=== PATIENT | female | born 1985 | race Hispanic/Latino ===

== ENCOUNTER 2020-01-09 12:57 | Emergency (ER) | payer OTHER ==
--- OUTSIDE RECORDS SUMMARY | 2020-01-09 13:00 | XMS REPORT ---
:1985 Author Organization eClinicalWorks Care Team Providers Name Role Phone Gil Rhonda Provider Role Unavailable Allergies, Adverse Reactions, Alerts Substance Reaction Event Type N.K.D.A. Info Not Available Non Drug Allergy Problems Problem Type Condition Code Onset Dates Condition Status Problem Bunion of great toe of left foot M21.612 Active Problem Pharyngitis, unspecified etiology J02.9 Active Problem Otalgia of left ear H92.02 Active Assessment Genital lesion, female N94.9 Active Problem Menstrual irregularity N92.6 Active Problem Anxiety F41.9 Active Problem Genital lesion, female N94.9 Active Problem Right ear impacted cerumen H61.21 Active Problem Frequent headaches R51 Active Problem Depression screening Z13.31 Active Problem Fever blister B00.1 Active Medications Medication Code Code Instructions Start End Status Dosage System Date Date Effexor XR [facility] 51148838495 37.5 MG Orally Jul 05, Active 1 capsule Once a day 2018 with food Deconex IR [facility] 11175286143 10-385 MG Orally January Active 1 tablet as every 4 hrs 2018 needed Paroxetine HCl ND 80575029162 20 MG Orally June 29, Active 1 tablet in Once a day 2018 the morning Medrol ND 02272690637 4 MG Orally as January Active as directed directed 2018 Results No Known Results Summary Purpose eClinicalWorks Submission
--- OUTSIDE RECORDS SUMMARY | 2020-01-09 13:00 | XMS REPORT ---
:1985 Author Organization [employer] Care Team Providers Name Role Phone Fani Mcmullen Provider Role Unavailable Allergies No Known Allergies Problems Problem Type Condition Code Onset Dates Condition Status Problem Otalgia of left ear H92.02 Active Problem Bunion of great toe of left foot M21.612 Active Assessment Hematuria R31.9 Active Assessment Family planning counseling Z30.09 Active Assessment Depo-Provera contraceptive status Z30.42 Active Problem Anxiety F41.9 Active Problem Depression screening Z13.31 Active Problem Menstrual irregularity N92.6 Active Problem Frequent headaches R51 Active Problem Pharyngitis, unspecified etiology J02.9 Active Problem Fever blister B00.1 Active Problem Right ear impacted cerumen H61.21 Active Medications Medication Code Code Instructions Start End Status Dosage System Date Date Paroxetine HCl ND 97057728925 20 MG Orally June 29, Active 1 tablet in Once a day 2018 the morning Medrol ND 66296869113 4 MG Orally as January Active as directed directed 2018 Deconex IR ND 52262039849 10-385 MG Orally January Active 1 tablet as every 4 hrs 2018 needed Effexor XR ND 89187516518 37.5 MG Orally Jul 05, Active 1 capsule Once a day 2019 with food Results No Known Results Summary Purpose eClinicalWorks Submission
--- NOTE | 2020-01-09 15:21 | ER ---
Nurse's Notes [facility] Name: Andressa Faria Age: 34 yrs Sex: Female : 1985 Arrival Date: 01/09/2020 Time: 13:00 Bed 10 Private MD: Diagnosis: Acute bronchitis Presentation: 01/09 13:57 Presenting complaint: Patient states: Cough and Congestion x 3 days. Ear pain. Fever on ca1 Thursday. Transition of care: patient was not received from another setting of care. Onset of symptoms was January 09, 2020. Risk Assessment: Do you want to hurt yourself or someone else? Patient reports no desire to harm self or others. Initial Sepsis Screen: Does the patient meet any 2 criteria? No. Patient's initial sepsis screen is negative. Does the patient have a suspected source of infection? No. Patient's initial sepsis screen is negative. Care prior to arrival: None. 13:57 Method Of Arrival: Ambulatory ca1 13:57 Acuity: DONYA 4 ca1 Triage Assessment: 15:52 General: Appears in no apparent distress. Behavior is calm. 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 - Coronavirus screen:: The patient has NOT traveled to [place], [place], or [place] in the past 14 days. The patient has NOT had contact with known/suspected case of Coronavirus?. - Social history:: Patient uses Patient/guardian denies using alcohol, street drugs, The patient lives with spouse, Smoking status: Patient denies any tobacco usage or history of. - Family history:: not pertinent. - Ebola Screening: : Patient negative for fever greater than or equal to 101.5 degrees Fahrenheit, and additional compatible Ebola Virus Disease symptoms Patient denies exposure to infectious person Patient denies travel to an Ebola-affected area in the 21 days before illness onset No symptoms or risks identified at this time. Screenin:00 Abuse screen: Denies threats or abuse. Denies injuries from another. Nutritional iw screening: No deficits noted. Tuberculosis screening: No symptoms or risk factors identified. Fall Risk None identified. Assessment: 15:00 General: Appears in no apparent distress. Behavior is calm, cooperative. General: iw Reports fever for feeling ill for. Pain: Complains of pain in body aches. Neuro: Level of Consciousness is awake, alert, obeys commands, Oriented to person, place, time, situation, Moves all extremities. Full function. Respiratory: Airway is patent Respiratory effort is even, unlabored, Breath sounds are clear bilaterally. EENT: Throat is clear with gag reflex present. Derm: Skin is intact, is healthy with good turgor. Musculoskeletal: Range of motion: intact in all extremities. Vital Signs: 13:59 BP 119 / 79; Pulse 100; Resp 19 S; Temp 98.8(O); Pulse Ox 100% on R/A; Weight 61.23 kg ca1 (R); Height 5 ft. 4 in. (162.56 cm) (R); 13:59 Body Mass Index 23.17 (61.23 kg, 162.56 cm) ca1 ED Course: 13:00 Patient arrived in ED. rg4 13:58 Triage completed. ca1 13:59 Arm band placed on right wrist. ca1 14:08 Lina Mayo, RN is Primary Nurse. iw 14:22 Ana Tang MD is Attending Physician. ma2 15:00 Patient has correct armband on for positive identification. iw 15:52 No provider procedures requiring assistance completed. Patient did not have IV access iw during this emergency room visit. Administered Medications: 15:39 Drug: Zithromax 500 mg Route: PO; iw 15:39 Drug: TORadol 60 mg Route: IM; Site: right deltoid; iw Outcome: 15:20 Discharge ordered by . ma2 15:52 Discharged to home ambulatory. iw 15:52 Condition: good 15:52 Discharge instructions given to patient, Instructed on discharge instructions, follow up and referral plans. medication usage, Demonstrated understanding of instructions, follow-up care, medications, Prescriptions given X 3. 15:53 Patient left the ED. iw Signatures: Lina Mayo, RN AVA iw Kimi Ferguson rg4 Ana Tang MD MD fl2 Lola Olmos RN RN ca1
--- NOTE | 2020-01-09 15:22 | EDPHYS ---
Physician Documentation [facility] Name: Andressa Faria Age: 34 yrs Sex: Female : 1985 Arrival Date: 01/09/2020 Time: 13:00 Bed 10 Private MD: ED Physician Ana Tang HPI: 01/09 15:19 This 34 yrs old Female presents to ER via Ambulatory with complaints of Sore ma2 Throat, Cough, Body Aches, Ear Pain. 15:19 The patient presents with sore throat. The patient describes throat pain as burning. ma2 Onset: The symptoms/episode began/occurred gradually, 3 day(s) ago. Severity of symptoms: At their worst the symptoms were mild, in the emergency department the symptoms are unchanged. Associated signs and symptoms: Pertinent positives: cough, Pertinent negatives dysphagia, flu-like symptoms. The patient has not experienced similar symptoms in the past. 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 - Coronavirus screen:: The patient has NOT traveled to [place], [place], or [place] in the past 14 days. The patient has NOT had contact with known/suspected case of Coronavirus?. - Social history:: Patient uses Patient/guardian denies using alcohol, street drugs, The patient lives with spouse, Smoking status: Patient denies any tobacco usage or history of. - Family history:: not pertinent. - Ebola Screening: : Patient negative for fever greater than or equal to 101.5 degrees Fahrenheit, and additional compatible Ebola Virus Disease symptoms Patient denies exposure to infectious person Patient denies travel to an Ebola-affected area in the 21 days before illness onset No symptoms or risks identified at this time. ROS: 15:19 Constitutional: Negative for fever, chills, and weight loss. ma2 15:19 All other systems are negative. Exam: 15:19 Constitutional: This is a well developed, well nourished patient who is awake, alert, ma2 and in no acute distress. Head/Face: Normocephalic, atraumatic. Eyes: Pupils equal round and reactive to light, extra-ocular motions intact. Lids and lashes normal. Conjunctiva and sclera are non-icteric and not injected. Cornea within normal limits. Periorbital areas with no swelling, redness, or edema. ENT: Nares patent. No nasal discharge, no septal abnormalities noted. Tympanic membranes are normal and external auditory canals are clear. Oropharynx with no redness, swelling, or masses, exudates, or evidence of obstruction, uvula midline. Mucous membranes moist. Neck: Trachea midline, no thyromegaly or masses palpated, and no cervical lymphadenopathy. Supple, full range of motion without nuchal rigidity, or vertebral point tenderness. No Meningismus. Chest/axilla: Normal chest wall appearance and motion. Nontender with no deformity. No lesions are appreciated. Cardiovascular: Regular rate and rhythm with a normal S1 and S2. No gallops, murmurs, or rubs. Normal PMI, no JVD. No pulse deficits. Respiratory: Lungs have equal breath sounds bilaterally, clear to auscultation and percussion. No rales, rhonchi or wheezes noted. No increased work of breathing, no retractions or nasal flaring. Abdomen/GI: Soft, non-tender, with normal bowel sounds. No distension or tympany. No guarding or rebound. No evidence of tenderness throughout. Neuro: Awake and alert, GCS 15, oriented to person, place, time, and situation. Cranial nerves II-XII grossly intact. Motor strength 5/5 in all extremities. Sensory grossly intact. Cerebellar exam normal. Normal gait. Vital Signs: 13:59 BP 119 / 79; Pulse 100; Resp 19 S; Temp 98.8(O); Pulse Ox 100% on R/A; Weight 61.23 kg ca1 (R); Height 5 ft. 4 in. (162.56 cm) (R); 13:59 Body Mass Index 23.17 (61.23 kg, 162.56 cm) ca1 MDM: 14:22 Patient medically screened. ma2 15:19 Differential diagnosis: Allergic rhinitis, bronchitis, gastroesophageal reflux disease, ma2 group A strep tonsillitis. Data reviewed: vital signs, nurses notes. Counseling: I had a detailed discussion with the patient and/or guardian regarding: the historical points, exam findings, and any diagnostic results supporting the discharge/admit diagnosis, the presence of at least one elevated blood pressure reading (>120/80) during this emergency department visit, the need for outpatient follow up. Response to treatment: the patient's symptoms have markedly improved after treatment. 01/09 14:02 Order name: Flu ca1 01/09 14:02 Order name: Strep ca1 01/09 14:46 Order name: Influenza Screen (A ; Complete Time: 15:13 EDMS 01/09 14:46 Order name: Group A Streptococcus Rapid Sc; Complete Time: 15:13 EDMS Administered Medications: 15:39 Drug: Zithromax 500 mg Route: PO; iw 15:39 Drug: TORadol 60 mg Route: IM; Site: right deltoid; iw Disposition: 01/09/20 15:20 Discharged to Home. Impression: Acute bronchitis. - Condition is Stable. - Discharge Instructions: Acute Bronchitis, Adult. - Prescriptions for Tylenol- Codeine #3 300-30 mg Oral Tablet - take 2 tablet by ORAL route every 6 hours As needed; 30 tablet. Tessalon Perles 100 mg Oral Capsule - take 1 capsule by ORAL route every 8 hours As needed; 15 capsule. Zithromax Z- Edgar 250 mg Oral Tablet - take 1 tablet by ORAL route as directed for 5 days Day 1 - take two (2) tablets one time. Day 2, 3, 4 , 5 take one (1) tablet once daily.; 6 tablet. Medrol (Edgar) 4 mg Oral Tablets, Dose Pack - take 1 tablet by ORAL route as directed - follow package instructions; 1 packet. - Medication Reconciliation Form, Thank You Letter, Antibiotic Education, Prescription Opioid Use form. - Follow up: Private Physician; When: Today; Reason: Continuance of care. - Problem is new. - Symptoms are unchanged. Signatures: Dispatcher [employer] EDLina Wei RN RN iw Ana Tang MD MD ma2 Lola Olmos RN RN ca1 Corrections: (The following items were deleted from the chart) 15:20 15:20 01/09/2020 15:20 Discharged to Home. Impression: Acute bronchitis. Condition is ma2 Stable. Forms are Medication Reconciliation Form, Thank You Letter, Antibiotic Education, Prescription Opioid Use. Follow up: Private Physician; When: Today; Reason: Continuance of care. [email or web address] 15:53 15:20 01/09/2020 15:20 Discharged to Home. Impression: Acute bronchitis. Condition is iw Stable. Forms are Medication Reconciliation Form, Thank You Letter, Antibiotic Education, Prescription Opioid Use. Follow up: Private Physician; When: Today; Reason: Continuance of care. Problem is new. Symptoms are unchanged. ma2
[2020-01-09] MEDS ORDERED: AZITHROMYCIN 250 MG TAB ONE (15:36)
[2020-01-09] MEDS ORDERED: KETOROLAC 30 MG/ML INJ ONE (15:36)
[2020-01-10 02:22] VITALS: BP 119/79; TEMP 98.8; O2SAT 100
== END 2020-01-09 15:53 | disposition home or self-care (01) ==
LOC: ER 12:57
DX: J20.9 Acute bronchitis, unspecified (principal)
CPT/HCPCS: 87070; 87081; 87804; 96372; 99283

== ENCOUNTER 2020-09-11 14:42 | Emergency (ER) | payer OTHER ==
--- OUTSIDE RECORDS SUMMARY | 2020-09-11 14:44 | XMS REPORT | Continuity of Care Document ---
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 Pharyngiti Pharyngiti Problem Active [facility] s, s, [facility] - unspecifie unspecifie Me moria d etiology d etiology l [facility]ics Otalgia of Otalgia of Problem Active [facility] left ear left ear [facility] - [facility] l [facility] Depression Depression Problem Active [facility] screening screening [facility] - Memoria l [facility] Fever Fever Problem Active [facility] blister blister [facility] - Memoria l [facility] Right ear Right ear Problem Active [facility] impacted impacted [facility] - cerumen cerumen Memoria l [facility] Frequent Frequent Problem Active [facility] headaches headaches [facility] - Memoria l [facility] Anxiety Anxiety Problem Active [facility] Menstrual Menstrual Problem Active [facility] irregulari irregulari Yamilka kes - ty ty Memoria l [facility] Clinics Genital Genital Problem Active [facility] lesion, lesion, [facility] - female female [facility] Amenorrhea Amenorrhea Problem Active [facility] - [facility] Allergies, Adverse Reactions, Alerts This patient has no known allergies or adverse reactions. Social History Smoking Status Start Date Stop Date Source Never Smoker [facility] Medications Ordered Filled Start Stop Current Ordering Indication Dosage Frequency Signature Comments Components Source Medication Medication Date Date Medication? Clinician (SIG) Name Name Cipro Cipro 2019-0 2020- No Rhonda 1 tablet [facility]17 [facility] - 00:00: 00:00 Memoria 00 :00 [facility] Effexor XR Effexor XR Yes Rhonda [address] [facility] 8-06 Millender with food [facility] - 00:00: Memoria 00 [facility] Paroxetine Paroxetine Yes Rhonda [address] [facility] HCl HCl 7-31 Millender in the [facility]ukes - 00:00: morning Memoria [facility] Medrol Medrol Yes Rhonda as [facility] 3[facility]26 Millender directed [facility] - 00:00: Memoria 00 [facility] Deconex IR Deconex IR Yes Rhonda [address] [facility] 3-26 Millender as needed [facility] - 00:00: Memoria 00 [facility] clindamycin clindamycin No clindamyci [facility] 1 % topical 1 % topical n 1 % Family gel APPLY A gel APPLY A topical Practic THIN LAYER THIN LAYER gel APPLY e TO THE TO THE A THIN AFFECTED AFFECTED LAYER TO AREA(S) BY AREA(S) BY THE TOPICAL TOPICAL AFFECTED ROUTE 2 ROUTE 2 AREA(S) BY TIMES PER TIMES PER TOPICAL DAY DAY ROUTE 2 TIMES PER DAY Vitamin D2 Vitamin D2 No 1capsul Q1W Vitamin D2 [facility] 50,000 unit 50,000 unit e(s) 50,000 Family capsule capsule unit Practic Take 1 Take 1 capsule e capsule capsule Take 1 every week every week capsule by oral by oral every week route. route. by oral route. Vital Signs Vital Name Observation Time Observation Value Comments Source BP Diastolic 2018-03-12 00:00:00 78 mm[Hg] [facility] Height 2018-03-12 00:00:00 64 [in_i] [facility] BMI (Body Mass 2018-03-12 00:00:00 22.9 kg/m2 [facility] BP Systolic 2018-03-12 00:00:00 112 mm[Hg] [facility] Body Weight 2018-03-12 00:00:00 133.2 [lb_av] [facility] BP Diastolic 2018-02-24 00:00:00 76 mm[Hg] [facility] Height 2018-02-24 00:00:00 64 [in_i] [facility] BMI (Body Mass 2018-02-24 00:00:00 23 kg/m2 [facility] BP Systolic 2018-02-24 00:00:00 122 mm[Hg] [facility] Body Weight 2018-02-24 00:00:00 134 [lb_av] [facility] Procedures This patient has no known procedures. Encounters Start End Encounter Admission Attending Care Care Encounter Source Date/Time Date/Time Type Type Clinicians Facility Department ID 2020-05-24 2020-05-24 [facility] [id number] [facility] 15:59:00 15:59:00 [facility] Medicine Outpati ent Clinics 2020-05-09 2020-05-09 [facility] [id number] [facility] 08:20:00 08:20:00 [facility] Medicine Outpati ent Clinics 2020-01-27 2020-01-27 [facility] [id number] [facility] [address] 16:33:00 16:33:00 [facility] Medicine Outpati ent Clinics 2020-01-23 2020-01-23 [facility] [id number] [facility] 08:15:00 08:15:00 [facility] Medicine l Medicine Outpati ent Clinics 2019-11-15 2019-11-15 [facility] [id number] 08:45:00 08:45:00 [facility] Medicine Outpati ent Clinics 2019-08-24 2019-08-24 [facility] [id number] [address] 08:20:00 08:20:00 [facility] Medicine Outpati ent Clinics 2019-07-21 2019-07-21 [facility] [id number] [address] 14:39:00 14:39:00 [facility] Medicine Outpati ent Clinics 2019-07-18 2019-07-18 [facility] [id number] [address] 09[facility]40:00 09:40:00 [facility] Medicine Outpati ent Clinics 2019-07-05 2019-07-05 [facility] [id number] [facility] [address] 08:34:00 08:34:00 t [facility] Medicine Outpati ent Clinics 2019-07-01 2019-07-01 [facility] [id number] [address] 08:17:00 08:17:00 [facility] Medicine Outpati ent Clinics 2019-06-29 2019-06-29 [facility] [id number] [address] 09:40:00 09:40:00 t [facility] Medicine Outpati ent Clinics 2019-06-08 2019-06-08 [facility] [id number] [address] 08[facility]00:00 08:00:00 t [facility] Medicine Outpati ent Clinics 2019-05-17 2019-05-17 [facility] [id number] 08:00:00 08:00:00 [facility] Medicine Medicine Outpati ent Clinics 2019-02-22 2019-02-22 [facility] [id number] 10:30:00 10:30:00 t [facility]gent [facility] l Outpati ent Clinics 2018-09-06 2018-09-06 [facility] [id number] 11:15:00 11:15:00 t [facility] Medicine Outpati ent Clinics 2018-03-12 2018-03-12 [facility] [place] - [id number] [facility] 00:00:00 00:00:00 [facility] Pauline, Family Practic MD: [id number], [place] [address] , Ph. 2018-02-24 2018-02-24 [facility] [place] - [id number] [facility] 00:00:00 00:00:00 [facility] Pauline, Family Practic MD: [id number], [facility] [address], [place] [address] , Ph. Results Test Description Test Time Test Comments Results Result Comments Source Folate+Cyanocobalamin [interpretation] in Serum or Blood 201 07-02-29 14:58:00 Test Item Value Reference Range Interpretation Comme nts vitamin B12 (test code = vitamin B12) 391 pg/mL 200-1100 folate, serum (test code = folate, serum) 8.4 NG/mL [facility] Ag and abs screen, 4TH gen. w/rflx ([id number]) 2018-02-25 13:14:00 Test Item Value Reference Range Interpretation Comments HIV Ag/Ab, 4TH gen (test code = non-reactive non-reactive HIV Ag/Ab, 4TH gen) [facility] Differential panel - [id number] 06:53:00 Test Item Value Reference Range Interpretation Comments white blood cell count (test 8.6 thousand/uL 3.8-10.8 code = white blood cell count) red blood cell count (test 4.88 million/uL 3.80-5.10 code = red blood cell count) hemoglobin (test code = 14.6 g/dL 11.7-15.5 hemoglobin) hematocrit (test code = 44.0 % 35.0-45.0 hematocrit) MCV (test code = MCV) 90.2 fL 80.0-100.0 MCH (test code = MCH) 29.9 pg 27.0-33.0 MCHC (test code = MCHC) 33.2 g/dL 32.0-36.0 RDW (test code = RDW) 12.2 % 11.0-15.0 platelet count (test code = 253 thousand/uL 140-400 platelet count) MPV (test code = MPV) 10.4 fL 7.5-12.5 absolute neutrophils (test 6347 cells/uL 1883-2261 code = absolute neutrophils) absolute band neutrophils (test code = absolute band neutrophils) absolute metamyelocytes (test code = absolute metamyelocytes) absolute myelocytes (test code = absolute myelocytes) absolute promyelocytes (test code = absolute promyelocytes) absolute lymphocytes (test 1789 cells/uL 850-3900 code = absolute lymphocytes) absolute monocytes (test code 370 cells/uL 200-950 = absolute monocytes) absolute eosinophils (test 77 cells/uL 15-500 code = absolute eosinophils) absolute basophils (test code 17 cells/uL 0-200 = absolute basophils) absolute blasts (test code = absolute blasts) absolute nucleated RBC (test code = absolute nucleated RBC) neutrophils (test code = 73.8 % neutrophils) band neutrophils (test code = band neutrophils) metamyelocytes (test code = metamyelocytes) myelocytes (test code = myelocytes) promyelocytes (test code = promyelocytes) lymphocytes (test code = 20.8 % lymphocytes) reactive lymphocytes (test code = reactive lymphocytes) monocytes (test code = 4.3 % monocytes) eosinophils (test code = 0.9 % eosinophils) basophils (test code = 0.2 % basophils) blasts (test code = blasts) nucleated RBC (test code = nucleated RBC) comment(s) (test code = comment(s)) [facility] - Serum or Plasma 2018-02-25 05:36:00 Test Item Value Reference Range Interpretation Comments glucose (test code = 85 mg/dL 65-99 glucose) urea nitrogen (BUN) (test 11 mg/dL 725 code = urea nitrogen (BUN)) creatinine (test code = 0.54 mg/dL 0.50-1.10 creatinine) eGFR non-afr. vietnamese 126 mL/min/1.73m2 > or = 60 (test code = eGFR non-afr. vietnamese) eGFR (test 146 mL/min/1.73m2 > or = 60 code = eGFR ) BUN/creatinine ratio (test not applicable 05-21 code = BUN/creatinine ratio) sodium (test code = sodium) 139 mmol/L 135-146 potassium (test code = 4.1 mmol/L 3.5-5.3 potassium) chloride (test code = 102 mmol/L 98-110 chloride) carbon dioxide (test code = 28 mmol/L 20-31 carbon dioxide) calcium (test code = 9.7 mg/dL 8.6-10.2 calcium) protein, total (test code = 7.1 g/dL 6.1-8.1 protein, total) albumin (test code = 4.7 g/dL 3.6-5.1 albumin) globulin (test code = 2.4 g/dL (calc) 1.9-3.7 globulin) albumin/globulin ratio 2.0 (calc) 1.0-2.5 (test code = albumin/globulin ratio) bilirubin, total (test code 0.5 mg/dL 0.2-1.2 = bilirubin, total) alkaline phosphatase (test 87 U/L 33-115 code = alkaline phosphatase) AST (test code = AST) 17 U/L 10-30 ALT (test code = ALT) 14 U/L 6-29 [id number] D [Mass/volume] in Serum or Plasma 2018-02-25 05:28:00 Test Item Value Reference Range Interpretation Comments vitamin D,25-oh,total,ia (test code 22 NG/mL 30-100 L = vitamin D,25-oh,total,ia) [facility] [Units/volume] in Serum or [id number] 05:28:00 Test Item Value Reference Range Interpretation Comments TSH (test code = TSH) 1.38 mIU/L [facility] A[facility]c/Hemoglobin.total in [id number] 04:40:00 Test Item Value Reference Range Interpretation Comments hemoglobin A1C (test code 4.9 % of total HGB <5.7 = hemoglobin A1C) EAG (mg/dL) (test code = 94 (calc) EAG (mg/dL)) EAG (mmol/L) (test code = 5.2 (calc) EAG (mmol/L)) [facility]
[2020-09-11] MEDS ORDERED: FENTANYL CITR 100 MCG/2 ML ONE (16:36)
[2020-09-11] MEDS ORDERED: ONDANSETRON 4 MG/2 ML VIAL ONE (16:36)
[2020-09-11] MEDS ORDERED: NA CHLORIDE 0.9% 1,000 ML ONE (16:37)
[2020-09-11 16:43] LABS: Absolute Lymphocytes (CBC) 2.1 K/uL (0.7-4.9); Basophils % 0.4 % (0-1.3); Hematocrit 42.1 % (36.0-45.0); Lymphocytes % 21.9 % (15.3-44.8); MPV 8.2 fL (7.6-11.3); RBC Red Blood Cell Count 4.85 M/uL (3.86-4.86)
[2020-09-11 16:57] LABS: ALT/SGPT 37 U/L (12-78); AST/SGOT 22 U/L (15-37); Albumin 4.3 g/dL (3.4-5.0); Alkaline Phosphatase 120 U/L (45-117); BUN Blood Urea Nitrogen 16 mg/dL (7-18); Bicarbonate 30 mmol/L (21-32); Bilirubin Direct 0.2 mg/dL (0-0.2); Bilirubin Total 0.6 mg/dL (0.2-1.0); Glucose Level 85 mg/dL (74-106); Lipase 103 U/L (73-393); Protein, Total 7.6 g/dL (6.4-8.2); Sodium Level 138 mmol/L (136-145)
[2020-09-11 17:05] LABS: Urine Blood TRACE (NEG); Urine Glucose NEGATIVE (NEG); Urine Protein NEGATIVE (NEG); Urine Specific Gravity 1.025 (1.005-1.030)
--- NOTE | 2020-09-11 17:36 | RAD REPORT ---
EXAM DESCRIPTION: CT - Abdomen Pelvis W Contrast - 09/11/2020 5:20 pm CLINICAL HISTORY: ABD PAIN COMPARISON: CT ABD PELVIS W CONTRAST dated 08/20/2013 TECHNIQUE: Biphasic, helical CT imaging of the abdomen and pelvis was performed following 100 ml non -ionic IV contrast. No oral contrast given. All CT scans are performed using dose optimization technique as appropriate and may include automated exposure control or mA/KV adjustment according to patient size. FINDINGS: No suspicious findings in the lung bases. The liver, spleen, and pancreas show no suspicious findings. Gallbladder and biliary tree are also wi thout suspicious finding. Liver attenuation is borderline to mild fatty infiltrated. Symmetric renal function is seen with no hydronephrosis or suspicious renal mass. No pyelonephritis o r acute parenchymal process. No bladder abnormalities. No adrenal abnormalities. Uterus and ovaries s how no suspicious findings. No stomach or small bowel abnormality. Appendix is not clearly defined. No suspicion for appendicitis . Moderate stool volume throughout the colon. Right-side and transverse colon show no acute findings. In the distal descending colon there is edematous/ inflammatory stranding in the adjacent fat withou t wall thickening or edema seen. No diverticulosis. No free air or pneumatosis. No other inflammatory stranding. Free fluid in the cul de sac is within physiologic limits. No hernia, mass or bulky lymp hadenopathy. No suspicious bony findings. IMPRESSION: Small focus of edematous/inflammatory stranding in the fatty tissues adjacent to the dis segundo descending colon. No colon wall thickening or mass. Epiploic appendagitis would be a primary consideration. A nonspeci fic colitis is possible.
[2020-09-11] MEDS ORDERED: MORPHINE 2 MG/ML SYR ONE (17:44)
[2020-09-11 17:58] LABS: Urine Bacteria <20 /HPF (<20); Urine RBC <5 /HPF (NONE SEEN)
[2020-09-11 17:59] LABS: Urine Culture Reflex Order NOT NEEDED
--- NOTE | 2020-09-11 18:24 | ER ---
Nurse's Notes [facility] Name: Andressa Faria Age: 34 yrs Sex: Female : 1985 Arrival Date: 09/11/2020 Time: 14:46 Bed 4 Private MD: Rhonda Cordero Diagnosis: Lower abdominal pain, unspecified-Epiploic appendagitis Presentation: 09/11 14:55 Chief complaint: Patient states: "I went to the [facility] the other day and they ran a urine jd3 test and I was sent home with antibiotics and pain medication, but I was not told I had a urine infection. she was ordered an ultrasound of that area, but that is in a week, but the pain has gotten worse.". Coronavirus screen: At this time, the client does not indicate any symptoms associated with coronavirus-19. Ebola Screen: Patient negative for fever greater than or equal to 101.5 degrees Fahrenheit, and additional compatible Ebola Virus Disease symptoms. Initial Sepsis Screen: Does the patient meet any 2 criteria? No. Patient's initial sepsis screen is negative. Does the patient have a suspected source of infection? No. Patient's initial sepsis screen is negative. Risk Assessment: Do you want to hurt yourself or someone else? Patient reports no desire to harm self or others. Onset of symptoms was September 09, 2020. 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 - Social history:: Smoking status: Patient denies any tobacco usage or history of. Screenin:30 Abuse screen: Denies threats or abuse. Nutritional screening: No deficits noted. aa5 Tuberculosis screening: No symptoms or risk factors identified. Fall Risk None identified. Assessment: 16:20 General: Appears uncomfortable, Behavior is calm, cooperative. Pain: Complains of pain aa5 in left lower quadrant Pain currently is 8 out of 10 on a pain scale. Quality of pain is described as sharp, Is continuous. Neuro: Level of Consciousness is awake, alert, obeys commands, Oriented to person, place, time, situation. Cardiovascular: Heart tones S1 S2 present Rhythm is regular. Respiratory: Airway is patent Respiratory effort is even, unlabored, Respiratory pattern is regular, symmetrical. GI: Abdomen is round non-distended, Bowel sounds present X 4 quads. Abd is soft X 4 quads Abdomen is tender to palpation in left lower quadrant. : Denies burning with urination, inability to void, urinary frequency. EENT: No signs and/or symptoms were reported regarding the EENT system. Derm: Skin is pink, warm \\T\\ dry. Musculoskeletal: Range of motion: intact in all extremities. 17:30 Reassessment: Patient is alert, oriented x 3, equal unlabored respirations, skin aa5 warm/dry/pink. Patient states symptoms have not improved. Pt reports pain is unchanged, [employer] was notified. . 18:45 Reassessment: Patient is alert, oriented x 3, equal unlabored respirations, skin aa5 warm/dry/pink. Patient states feeling better. Vital Signs: 14:57 BP 122 / 87; Pulse 82; Resp 17 S; Temp 98.1(O); Pulse Ox 100% on R/A; Weight 63.5 kg jd3 (R); Height 5 ft. 4 in. (162.56 cm) (R); Pain 8/10; 16:17 BP 126 / 81; Pulse 82; Resp 16 S; Pulse Ox 100% on R/A; aa5 17:35 BP 141 / 80; Pulse 80; Resp 18 S; Pulse Ox 98% on R/A; aa5 14:57 Body Mass Index 24.03 (63.50 kg, 162.56 cm) jd3 ED Course: 14:46 Patient arrived in ED. mr 14:46 Rhonda Cordero MD is Private Physician. mr 14:56 Triage completed. jd3 14:57 Arm band placed on. jd3 15:45 Vitaliy Morrison NP is PHCP. pm1 15:45 Josh Glasgow MD is Attending Physician. pm1 16:10 Catherine Agrawla, AVA is Primary Nurse. aa5 16:20 Patient has correct armband on for positive identification. Placed in gown. Bed in low aa5 position. Call light in reach. Side rails up X2. Pulse ox on. NIBP on. 16:30 Initial lab(s) drawn, by me, sent to lab. Inserted saline lock: 20 gauge in left aa5 antecubital area, using aseptic technique. Blood collected. 17:21 CT Abd/Pelvis - IV Contrast Only In Process Unspecified. EDMS 18:45 No provider procedures requiring assistance completed. IV discontinued, intact, aa5 bleeding controlled, No redness/swelling at site. Pressure dressing applied. Administered Medications: 16:40 Drug: NS 0.9% 1000 ml Route: IV; Rate: 1000 ml; Site: left antecubital; aa5 17:36 Follow up: IV Status: Completed infusion; IV Intake: 1000ml aa5 16:40 Drug: fentaNYL (PF) 25 mcg Route: IVP; Site: left antecubital; aa5 16:45 Follow up: Response: No adverse reaction aa5 16:40 Drug: Zofran (Ondansetron) 4 mg Route: IVP; Site: left antecubital; aa5 16:45 Follow up: Response: No adverse reaction aa5 17:36 Drug: morphine 2 mg Route: IVP; Site: left antecubital; aa5 17:40 Follow up: Response: No adverse reaction aa5 Intake: 17:36 IV: 1000ml; Total: 1000ml. aa5 Outcome: 18:23 Discharge ordered by . pm1 18:45 Discharged to home ambulatory, with family. aa5 18:45 Condition: stable 18:45 Discharge instructions given to patient, Instructed on discharge instructions, follow up and referral plans. medication usage, Demonstrated understanding of instructions, follow-up care, medications, Prescriptions given X 1. 18:51 Patient left the ED. iw Signatures: Dispatcher [employer] [facility] Sonia Blair Lina Oseguera RN AVA iw Catherine Agrawal RN RN aa5 Vitaliy Morrison, [employer]ER [employer] pm1 Niall Wang RN RN jd3
--- NOTE | 2020-09-11 18:24 | EDPHYS ---
Physician Documentation [facility] Name: Andressa Faria Age: 34 yrs Sex: Female : 1985 Arrival Date: 09/11/2020 Time: 14:46 Bed 4 Private MD: Rhonda Cordero ED Physician Josh Glasgow HPI: 09/11 17:12 This 34 yrs old Female presents to ER via Ambulatory with complaints of pm1 Abdominal Pain, Flank Pain. 17:12 The patient presents with abdominal pain in the left lower quadrant. Onset: The pm1 symptoms/episode began/occurred 2 day(s) ago. The symptoms do not radiate. Associated signs and symptoms: Pertinent positives: left flank pain, Pertinent negatives: nausea, vomiting, and diarrhea. The symptoms are described as achy. Modifying factors: The symptoms are alleviated by nothing, the symptoms are aggravated by nothing. Severity of pain: in the emergency department the pain is actually worse. The patient has been recently seen by a physician: the patient's primary care provider, yesterday, Patient was told that it might be a ovarian cyst and order a u/s for her but prescribed her abx and pain medications just in case it is a uti. Patient's symptoms don't feel like prior utis and she feels that the increase in pain are preventing from waiting for the u/s in a few weeks. 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 - Social history:: Smoking status: Patient denies any tobacco usage or history of. ROS: 17:12 Constitutional: Negative for fever, chills, and weight loss, Cardiovascular: Negative pm1 for chest pain, palpitations, and edema, Respiratory: Negative for shortness of breath, cough, wheezing, and pleuritic chest pain. 17:12 : Negative for injury, bleeding, discharge, and swelling, MS/Extremity: Negative for injury and deformity, Skin: Negative for injury, rash, and discoloration. 17:12 Abdomen/GI: Positive for abdominal pain, nausea, of the left lower quadrant, Negative for vomiting, diarrhea, constipation. 17:12 Back: Positive for flank pain, on the left. 17:12 All other systems are negative. Exam: 17:12 Constitutional: This is a well developed, well nourished patient who is awake, alert, pm1 and in no acute distress. Head/Face: Normocephalic, atraumatic. 17:12 Back: No spinal tenderness. No costovertebral tenderness. Full range of motion. Skin: Warm, dry with normal turgor. Normal color with no rashes, no lesions, and no evidence of cellulitis. MS/ Extremity: Pulses equal, no cyanosis. Neurovascular intact. Full, normal range of motion. 17:12 Cardiovascular: Exam negative for acute changes, Rate: normal, Rhythm: regular, Pulses: no pulse deficits are appreciated. 17:12 Respiratory: Exam negative for acute changes, respiratory distress, shortness of breath. 17:12 Abdomen/GI: Inspection: abdomen appears normal, Palpation: soft, in all quadrants, mild abdominal tenderness, in the left lower quadrant. 17:12 Neuro: Exam negative for acute changes, Orientation: is normal, Mentation: is normal, Motor: is normal, moves all fours. Vital Signs: 14:57 BP 122 / 87; Pulse 82; Resp 17 S; Temp 98.1(O); Pulse Ox 100% on R/A; Weight 63.5 kg jd3 (R); Height 5 ft. 4 in. (162.56 cm) (R); Pain 8/10; 16:17 BP 126 / 81; Pulse 82; Resp 16 S; Pulse Ox 100% on R/A; aa5 17:35 BP 141 / 80; Pulse 80; Resp 18 S; Pulse Ox 98% on R/A; aa5 14:57 Body Mass Index 24.03 (63.50 kg, 162.56 cm) jd3 MDM: 15:57 Patient medically screened. pm1 18:02 Data reviewed: vital signs. Data interpreted: Pulse oximetry: on room air is 100 %. pm1 Interpretation: normal. 18:05 Counseling: I had a detailed discussion with the patient and/or guardian regarding: the pm1 historical points, exam findings, and any diagnostic results supporting the discharge/admit diagnosis, lab results, radiology results, the need for outpatient follow up, to return to the emergency department if symptoms worsen or persist or if there are any questions or concerns that arise at home. 09/11 16:04 Order name: Basic Metabolic Panel; Complete Time: 17:10 pm1 09/11 16:04 Order name: CBC with Diff; Complete Time: 16:51 pm1 09/11 16:04 Order name: Hepatic Function; Complete Time: 17:10 pm1 09/11 16:04 Order name: Lipase; Complete Time: 17:10 pm1 09/11 16:37 Order name: Urine Dipstick--Ancillary (enter results); Complete Time: 17:10 bd 09/11 16:37 Order name: Urine --Ancillary (enter results); Complete Time: 17:10 bd 09/11 16:04 Order name: IV Saline Lock; Complete Time: 16:38 pm1 09/11 16:04 Order name: Labs collected and sent; Complete Time: 16:38 pm1 09/11 16:04 Order name: CT Abd/Pelvis - IV Contrast Only; Complete Time: 17:56 pm1 09/11 17:11 Order name: Urine Microscopic Only; Complete Time: 18:01 pm1 09/11 16:04 Order name: Urine Dipstick-Ancillary (obtain specimen); Complete Time: 16:42 pm1 09/11 16:04 Order name: Urine Test (obtain specimen); Complete Time: 16:42 pm1 Administered Medications: 16:40 Drug: NS 0.9% 1000 ml Route: IV; Rate: 1000 ml; Site: left antecubital; aa5 17:36 Follow up: IV Status: Completed infusion; IV Intake: 1000ml aa5 16:40 Drug: fentaNYL (PF) 25 mcg Route: IVP; Site: left antecubital; aa5 16:45 Follow up: Response: No adverse reaction aa5 16:40 Drug: Zofran (Ondansetron) 4 mg Route: IVP; Site: left antecubital; aa5 16:45 Follow up: Response: No adverse reaction aa5 17:36 Drug: morphine 2 mg Route: IVP; Site: left antecubital; aa5 17:40 Follow up: Response: No adverse reaction aa5 Disposition: 18:53 Co-signature as Attending Physician, Josh Glasgow MD. rn Disposition: 09/11/20 18:23 Discharged to Home. Impression: Lower abdominal pain, unspecified - Epiploic appendagitis. - Condition is Stable. - Discharge Instructions: Abdominal Pain, Adult. - Prescriptions for Tylenol- Codeine #3 300-30 mg Oral Tablet - take 2 tablets by ORAL route every 6 hours As needed; 20 tablet. - Medication Reconciliation Form, Thank You Letter, Antibiotic Education, Prescription Opioid Use form. - Follow up: Emergency Department; When: As needed; Reason: Worsening of condition. Follow up: Private Physician; When: 2 - 3 days; Reason: Recheck today's complaints, Continuance of care, Re-evaluation by your physician. - Problem is new. - Symptoms have improved. Signatures: Dispatcher [employer] EDMS Lina Mayo, RN RN iw Josh Glasgow MD MD rn Calderon, Audri RN RN aa5 Vitaliy Morrison, JYOTI SERVICE PORTER pm1 Niall Wang, RN RN jd3 Corrections: (The following items were deleted from the chart) 18:51 18:23 09/11/2020 18:23 Discharged to Home. Impression: Lower abdominal pain, iw unspecified - Epiploic appendagitis. Condition is Stable. Forms are Medication Reconciliation Form, Thank You Letter, Antibiotic Education, Prescription Opioid Use. Follow up: Emergency Department; When: As needed; Reason: Worsening of condition. Follow up: Private Physician; When: 2 - 3 days; Reason: Recheck today's complaints, Continuance of care, Re-evaluation by your physician. Problem is new. Symptoms have improved. pm1
[2020-09-11 20:02] VITALS: BP 122/87; TEMP 98.1; O2SAT 100
== END 2020-09-11 18:51 | disposition home or self-care (01) ==
LOC: ER 14:42
DX: K63.89 Other specified diseases of intestine (principal)
CPT/HCPCS: 85025; 80048; 36415; 81025; 80076; 83690; 74177; Q9967; J3010; J2270; J7030; J2405; 81003; 81015; 96361; 96374; 96375; 99284